=== PATIENT | female | born 1980 | race Caucasian/White ===

== ENCOUNTER 2022-02-16 06:50 | Inpatient (IN) | payer OTHER ==
[~2022-02-16 06:50] MED LIST: Lactated Ringers 1,000 ML IV ONE
[2022-02-16 08:01] LABS: INFLUENZA A NEGATIVE (NEGATIVE); INFLUENZA B NEGATIVE (NEGATIVE); RESPIRATORY SYNCTIAL VIRUS NEGATIVE (Negative); SARS-CoV-2 Xpert Express NEGATIVE (NEGATIVE)
[2022-02-16] MEDS ORDERED: MEFOXIN 2 GM PREMIX** 2 GM/50 ML ML IV ONE (08:27)
[2022-02-16] MEDS ORDERED: Lactated Ringers 1,000 ML IV ONE (08:27)
[2022-02-16] MEDS ORDERED: Lactated Ringers 1,000 ML IV SCH (08:30)
[2022-02-16 08:48] LABS: Hematocrit 42.8 % (35-47); Hemoglobin 14.4 g/dL (12.0-16.0); Mean Cell Volume 94.9 fL (78-100); Mean Corpuscular Hemoglobin 31.9 pg (26-32); Mean Corpuscular Hgb Concent. 33.6 g/dL (32-36); Mean Platelet Volume 10.9 fL (7.5-11.0); Platelet Count 197 x10^3/uL (150-450); Red Blood Count 4.51 x10^6/uL (4.1-5.4); Red Cell Distribution Width 12.1 % (11.5-14.0); White Blood Count 7.7 x10^3/uL (4.0-10.5)
[2022-02-16] MEDS ORDERED: MEFOXIN 2 GM PREMIX** 2 GM/50 ML ML IV SCH (09:00)
[2022-02-16 09:02] LABS: ALBUMIN 4.2 g/dL (3.5-5.0); ALKALINE PHOSPHATASE 58 U/L (38-126); ANION GAP 11.5 MEQ/L (5-15); BLOOD UREA NITROGEN 19 mg/dL (7-17); CHLORIDE 106 mmol/L (98-107); Calcium 8.9 mg/dL (8.4-10.2); Carbon Dioxide 26 mmol/L (22-30); EST GLOMERULAR FILTRATION RATE > 60.0 ML/MIN; Glucose 103 mg/dL (74-106); Potassium 4.4 mmol/L (3.5-5.1); SGOT/AST 20 U/L (14-36); SGPT/ALT 23 U/L (0-35); SODIUM 139 mmol/L (137-145)
[2022-02-16 09:58] LABS: ABO TYPING A; Antibody Screen NEGATIVE (NEGATIVE); RH TYPING POSITIVE
[2022-02-16] MEDS ORDERED: VERSED 5 MG/5 ML ONE (10:33)
[2022-02-16] MEDS ORDERED: OFIRMEV 100 ML IV ONE (10:41)
[2022-02-16] MEDS ORDERED: Pre-Attached Lta Kit TP ONE (10:41)
[2022-02-16] MEDS ORDERED: SUBLIMAZE 100 MCG/2 ML ONE ×2 (10:47→13:06)
[2022-02-16] MEDS ORDERED: Astramorph-Pf 5 MG/10 ML ONE (10:47)
[2022-02-16] MEDS ORDERED: Decadron 4 MG INJ ONE (10:48)
[2022-02-16] MEDS ORDERED: Zofran 4 MG/2 ML VIAL ONE (10:48)
[2022-02-16] MEDS ORDERED: Xylocaine-Mpf 2% 5 Ml Vial ONE (10:48)
[2022-02-16] MEDS ORDERED: DIPRIVAN 200 MG/20 ML IV ONE (10:48)
[2022-02-16] MEDS ORDERED: Zemuron 100 MG/10 ML ONE ×2 (10:48→11:43)
[2022-02-16] MEDS ORDERED: ATROPINE SULFATE 1MG ONE (11:17)
[2022-02-16] MEDS ORDERED: DEXMEDETOMIDINE 80 MCG/20ML-NS IV ONE (11:44)
[2022-02-16] MEDS ORDERED: Sensorcaine 0.25% 10 ML ONE (12:04)
[2022-02-16] MEDS ORDERED: EXPAREL 133 MG/10 ML VIAL IJ ONE (12:21)
[2022-02-16] MEDS ORDERED: Proair Hfa MDI IH ONE (12:35)
[2022-02-16] MEDS ORDERED: BRIDION 200MG/2ML IV ONE (12:50)
[2022-02-16] MEDS ORDERED: Zofran 4 MG/2 ML VIAL IV PRN ×2 (13:59→14:00)
[2022-02-16] MEDS ORDERED: CLARITIN 10 MG PO PRN (14:00)
[2022-02-16] MEDS ORDERED: Sodium Chloride 0.9% 10 ML FLUSH Syringe IJ PRN (14:00)
[2022-02-16] MEDS ORDERED: Narcan 0.4 MG/ML IV PRN (14:00)
[2022-02-16] MEDS ORDERED: BENADRYL 50 MG/ML IV PRN (14:00)
[2022-02-16] MEDS ORDERED: Nubain 10 MG/ML IV PRN (14:00)
[2022-02-16] MEDS ORDERED: DEMEROL 50 MG IV PRN (14:00)
[2022-02-16] MEDS ORDERED: TORAdol 30 mg Injection IV PRN (14:01)
[2022-02-16] MEDS ORDERED: MORPHINE SULFATE 2 MG INJ IV PRN (14:04)
[2022-02-16] MEDS ORDERED: MORPHINE SULFATE 4 MG INJ IV PRN (14:07)
[2022-02-16] MEDS ORDERED: MEDICATION INTERVENTION MC SCH (14:15)
[2022-02-16] MEDS: Mylicon 80MG PO SCH ×2 (14:20→21:02)
[2022-02-16] MEDS: Lactated Ringers 1,000 ML IV SCH ×2 (14:20→22:33)
[2022-02-16] MEDS: Reglan 10 MG/2 ML IV SCH ×2 (14:22→21:02)
[2022-02-16] MEDS: xanAX 0.5 MG PO SCH ×2 (14:23→21:03)
[2022-02-16] MEDS: BUSPAR 5 MG PO SCH ×2 (14:24→21:03)
[2022-02-16 14:55] LABS: Appearance CLEAR (CLEAR); Bilirubin NEGATIVE (NEGATIVE); Glucose NEGATIVE (NEGATIVE); Ketones NEGATIVE (NEGATIVE); Nitrite NEGATIVE (NEGATIVE); Protein,Urine Dip NEGATIVE (Negative); RBC NEGATIVE Ery/ul (0-5); Urobilinogen 0.2 mg/dL (0-1)
[2022-02-16 14:56] LABS: Bacteria NONE SEEN /HPF (NEGATIVE); RBC NONE SEEN /HPF (0-2)
[2022-02-16] MEDS ORDERED: ZOLOFT 50 MG TABLET PO SCH (15:00)
[2022-02-16] MEDS: MEFOXIN 2 GM PREMIX** 2 GM/50 ML ML IV SCH ×2 (16:01→21:01)
[2022-02-16 16:57] LABS: Dipstick done @ ? MAIN LAB
[2022-02-16 18:34] LABS: Hematocrit 44.4 % (35-47); Mean Cell Volume 93.7 fL (78-100); Mean Corpuscular Hemoglobin 31.6 pg (26-32); Mean Corpuscular Hgb Concent. 33.8 g/dL (32-36); Mean Platelet Volume 11.1 fL (7.5-11.0); Platelet Count 227 x10^3/uL (150-450); Red Blood Count 4.74 x10^6/uL (4.1-5.4); Red Cell Distribution Width 11.9 % (11.5-14.0); White Blood Count 15.2 x10^3/uL (4.0-10.5)
[2022-02-16] MEDS: PERCOCET TABLET 5/325MG PO PRN (21:02)
[2022-02-16] MEDS ORDERED: CELECOXIB 50 MG PO SCH (22:00)
[2022-02-16] MEDS ORDERED: Docusate Sodium 100 MG PO SCH (22:00)
[2022-02-17 00:24] VITALS: BP 101/65; PULSE 60
[2022-02-17] MEDS: MEFOXIN 2 GM PREMIX** 2 GM/50 ML ML IV SCH (02:51)
[2022-02-17 05:22] LABS: Hematocrit 37.7 % (35-47); Hemoglobin 12.7 g/dL (12.0-16.0); Mean Corpuscular Hemoglobin 31.7 pg (26-32); Mean Corpuscular Hgb Concent. 33.7 g/dL (32-36); Mean Platelet Volume 11.7 fL (7.5-11.0); Platelet Count 198 x10^3/uL (150-450); Red Blood Count 4.01 x10^6/uL (4.1-5.4); Red Cell Distribution Width 12.3 % (11.5-14.0); White Blood Count 9.5 x10^3/uL (4.0-10.5)
[2022-02-17 05:28] LABS: ALBUMIN 3.5 g/dL (3.5-5.0); ALKALINE PHOSPHATASE 48 U/L (38-126); ANION GAP 7.8 MEQ/L (5-15); BLOOD UREA NITROGEN 14 mg/dL (7-17); CHLORIDE 102 mmol/L (98-107); Calcium 8.5 mg/dL (8.4-10.2); Carbon Dioxide 29 mmol/L (22-30); Creatinine 1 0.77 mg/dL (0.52-1.04); EST GLOMERULAR FILTRATION RATE > 60.0 ML/MIN; Glucose 109 mg/dL (74-106); Potassium 3.7 mmol/L (3.5-5.1); SGOT/AST 23 U/L (14-36); SGPT/ALT 19 U/L (0-35); SODIUM 135 mmol/L (137-145); Total Protein 5.9 g/dL (6.3-8.2)
[2022-02-17] MEDS: Mylicon 80MG PO SCH (06:06)
[2022-02-17] MEDS: Reglan 10 MG/2 ML IV SCH (06:06)
[2022-02-17 07:02] VITALS: O2SAT 96
[2022-02-17] MEDS: PERCOCET TABLET 5/325MG PO PRN (07:18)
--- NOTE | 2022-02-17 07:36 | PCM.NOTE ---
Date and Time: 02/17/22733 Subjective Assessment: pod 1 pt resting in bed able to ambulate and tolerate diet. vss afebrile abd; soft incision with dressing intact without soilage ext; no clubbing cyanosis or edema hgb; 12. 7 a/p sp laparotomy supracervical hysterectomy b/l salpingectomy for chronic pelivic pain dc home today fu office 1 wk Objective Exam Wound Assessment: Skin/Wound Assessment Wound/Incision Assessment Start: 02/16/22 12:14 Text: Status: Active Freq: Q4H Protocol: Document 02/17/22 07:24 SANDRA (Rec: 02/17/22 07:25 SANDRA [id number]) Wound/Incision Assessment Lower Anterior Medial Abdomen Wound Type Incision Wound Photo Photo Taken No OBJECTIVE DATA Vital Signs: Vital Signs - 24 hr Temp Pulse Resp BP Pulse Ox 02/17/22 07:01 96 02/17/22 00:24 96.9 F 60 18 101/65 95 02/17/22 00:00 18 02/16/22 20:00 22 02/16/22 18:55 99 02/16/22 16:30 136/76 02/16/22 16:00 97.7 F 62 19 127/74 95 02/16/22 15:00 122/67 02/16/22 14:22 97 02/16/22 13:45 97.1 F 56 L 22 186/109 99 02/16/22 08:15 98.5 F 60 18 165/99 98 02/16/22 08:06 98.5 F 60 18 165/99 98 02/16/22 07:57 98.5 F 60 18 165/99 98 Pain Assessment - Last Documented Pain Intensity [Lower] 4 Pain Intensity 7 Pain Scale Used 0-10 Pain Scale Intake and Output: Intake & Output 02/14/22 02/15/22 02/16/22 02/17/22 11:59 11:59 11:59 11:59 Intake Total 1020 Output Total 500 Balance 520 Weight 95.7 kg 95.7 kg Lab Results: Lab Results-Last 24 Hours 02/16/22 02/16/22 02/16/22 Range/Units 07:20 07:43 08:39 WBC 7.7 (4.0-10.5) x10^3/uL RBC 4.51 (4.1-5.4) x10^6/uL Hgb 14.4 (12.0-16.0) g/dL Hct 42.8 (35-47) % MCV 94.9 (78-100) fL MCH 31.9 (26-32) pg MCHC 33.6 (32-36) g/dL RDW 12.1 (11.5-14.0) % Plt Count 197 (150-450) x10^3/uL MPV 10.9 (7.5-11.0) fL Sodium (137-145) mmol/L Potassium (3.5-5.1) mmol/L Chloride (98-107) mmol/L Carbon Dioxide (22-30) mmol/L Anion Gap (5-15) MEQ/L BUN (7-17) mg/dL Creatinine (0.52-1.04) mg/dL Estimated GFR ML/MIN Glucose (74-106) mg/dL Calcium (8.4-10.2) mg/dL Total Bilirubin (0.2-1.3) mg/dL AST (14-36) U/L ALT (0-35) U/L Alkaline Phosphatase (38-126) U/L Serum Total Protein (6.3-8.2) g/dL Albumin (3.5-5.0) g/dL Urinalys Dipstick Clnc Urine Color (YELLOW) Urine Appearance (CLEAR) Urine pH (5-6) Ur Specific [place] (1.005-1.025) POC Urine Protein Conf (Negative) Urine Ketones (NEGATIVE) Urine Nitrite (NEGATIVE) Urine Bilirubin (NEGATIVE) Urine Urobilinogen (0-1) mg/dL Urine Leukocytes (NEGATIVE) Urine WBC (Auto) (0-5) /HPF Urine RBC (Auto) (0-2) /HPF U Epithel Cells (Auto) (FEW) /HPF Urine Bacteria (Auto) (NEGATIVE) /HPF Urine RBC (0-5) Yung/ul Urine Glucose (NEGATIVE) mg/dL Urine HCG, Qual NEGATIVE (Negative) Influenza Type A Ag NEGATIVE (NEGATIVE) Influenza Type B Ag NEGATIVE (NEGATIVE) RSV (PCR) NEGATIVE (Negative) SARS-CoV-2 (PCR) NEGATIVE (NEGATIVE) ABO Group Rh Factor Antibody Screen (NEGATIVE) 02/16/22 02/16/22 02/16/22 Range/Units 08:39 08:39 11:16 WBC (4.0-10.5) x10^3/uL RBC (4.1-5.4) x10^6/uL Hgb (12.0-16.0) g/dL Hct (35-47) % MCV (78-100) fL MCH (26-32) pg MCHC (32-36) g/dL RDW (11.5-14.0) % Plt Count (150-450) x10^3/uL MPV (7.5-11.0) fL Sodium 139 (137-145) mmol/L Potassium 4.4 (3.5-5.1) mmol/L Chloride 106 (98-107) mmol/L Carbon Dioxide 26 (22-30) mmol/L Anion Gap 11.5 (5-15) MEQ/L BUN 19 H (7-17) mg/dL Creatinine 0.70 (0.52-1.04) mg/dL Estimated GFR > 60.0 ML/MIN Glucose 103 (74-106) mg/dL Calcium 8.9 (8.4-10.2) mg/dL Total Bilirubin 0.50 (0.2-1.3) mg/dL AST 20 (14-36) U/L ALT 23 (0-35) U/L Alkaline Phosphatase 58 (38-126) U/L Serum Total Protein 7.0 (6.3-8.2) g/dL Albumin 4.2 (3.5-5.0) g/dL Urinalys Dipstick Clnc MAIN LAB Urine Color YELLOW (YELLOW) Urine Appearance CLEAR (CLEAR) Urine pH 7.0 (5-6) Ur Specific [place] 1.020 (1.005-1.025) POC Urine Protein Conf NEGATIVE (Negative) Urine Ketones NEGATIVE (NEGATIVE) Urine Nitrite NEGATIVE (NEGATIVE) Urine Bilirubin NEGATIVE (NEGATIVE) Urine Urobilinogen 0.2 (0-1) mg/dL Urine Leukocytes NEGATIVE (NEGATIVE) Urine WBC (Auto) NONE (0-5) /HPF Urine RBC (Auto) NONE SEEN (0-2) /HPF U Epithel Cells (Auto) NONE (FEW) /HPF Urine Bacteria (Auto) NONE SEEN (NEGATIVE) /HPF Urine RBC NEGATIVE (0-5) Yung/ul Urine Glucose NEGATIVE (NEGATIVE) mg/dL Urine HCG, Qual (Negative) Influenza Type A Ag (NEGATIVE) Influenza Type B Ag (NEGATIVE) RSV (PCR) (Negative) SARS-CoV-2 (PCR) (NEGATIVE) ABO Group A Rh Factor POSITIVE Antibody Screen NEGATIVE (NEGATIVE) 02/16/22 02/17/22 02/17/22 Range/Units 18:15 04:30 04:30 WBC 15.2 H 9.5 (4.0-10.5) x10^3/uL RBC 4.74 4.01 L (4.1-5.4) x10^6/uL Hgb 15.0 12.7 (12.0-16.0) g/dL Hct 44.4 37.7 (35-47) % MCV 93.7 94.0 (78-100) fL MCH 31.6 31.7 (26-32) pg MCHC 33.8 33.7 (32-36) g/dL RDW 11.9 12.3 (11.5-14.0) % Plt Count 227 198 (150-450) x10^3/uL MPV 11.1 H 11.7 H (7.5-11.0) fL Sodium 135 L (137-145) mmol/L Potassium 3.7 (3.5-5.1) mmol/L Chloride 102 (98-107) mmol/L Carbon Dioxide 29 (22-30) mmol/L Anion Gap 7.8 (5-15) MEQ/L BUN 14 (7-17) mg/dL Creatinine 0.77 (0.52-1.04) mg/dL Estimated GFR > 60.0 ML/MIN Glucose 109 H (74-106) mg/dL Calcium 8.5 (8.4-10.2) mg/dL Total Bilirubin 0.90 (0.2-1.3) mg/dL AST 23 (14-36) U/L ALT 19 (0-35) U/L Alkaline Phosphatase 48 (38-126) U/L Serum Total Protein 5.9 L (6.3-8.2) g/dL Albumin 3.5 (3.5-5.0) g/dL Urinalys Dipstick Clnc Urine Color (YELLOW) Urine Appearance (CLEAR) Urine pH (5-6) Ur Specific [place] (1.005-1.025) POC Urine Protein Conf (Negative) Urine Ketones (NEGATIVE) Urine Nitrite (NEGATIVE) Urine Bilirubin (NEGATIVE) Urine Urobilinogen (0-1) mg/dL Urine Leukocytes (NEGATIVE) Urine WBC (Auto) (0-5) /HPF Urine RBC (Auto) (0-2) /HPF U Epithel Cells (Auto) (FEW) /HPF Urine Bacteria (Auto) (NEGATIVE) /HPF Urine RBC (0-5) Yung/ul Urine Glucose (NEGATIVE) mg/dL Urine HCG, Qual (Negative) Influenza Type A Ag (NEGATIVE) Influenza Type B Ag (NEGATIVE) RSV (PCR) (Negative) SARS-CoV-2 (PCR) (NEGATIVE) ABO Group Rh Factor Antibody Screen (NEGATIVE) Multi-Disciplinary Progress Notes: Multi-Disciplinary Progress Notes 02/16/22 18:54 Respiratory Note by Queenie Sprague PT DOING SDC IS Initialized on 02/16/22 18:54 - END OF NOTE Assessment/Plan (1) History of abdominal supracervical subtotal hysterectomy Current Visit: Yes Status: Acute Code(s): Z90.711 - ACQUIRED ABSENCE OF UTERUS WITH REMAINING CERVICAL STUMP (2) Status post bilateral salpingectomy Current Visit: Yes Status: Acute Code(s): Z90.79 - ACQUIRED ABSENCE OF OTHER GENITAL ORGAN(S)
[2022-02-17] MEDS: Lactated Ringers 1,000 ML IV SCH (07:40)
--- NOTE | 2022-02-17 07:41 | PCM.DS ---
Discharge Summary Date of Admission: 02/16/22 06:53 Admitting Physician: LATA NOEL DO Primary Care Provider: OSCAR RAMACHANDRAN Allergies Allergies No Known Drug Allergies Allergy (Verified 02/16/22 07:44) Hospital Summary - Hospital Course Hospital Course: pt was admitted on february 16 for undergoing laparotomy supracervical hysterectomy b/l salpingectomy secondary to chronic pelvic pain and underwent procedure without complication. during postop period did well and had stable hgb level at 12.7. pt able to ambulate and tolerate diet. at this time pt was advised to fu in office in 1 wk for removal of dressing and is able to be discharged today. all questions answered to her satisfaction. - Vitals & Intake/Output Vital Signs: Vital Signs Temperature 96.9 F 02/17/22 00:24 Pulse Rate 60 02/17/22 00:24 Respiratory Rate 18 02/17/22 00:24 Blood Pressure 101/65 02/17/22 00:24 O2 Sat by Pulse Oximetry 96 02/17/22 07:01 Intake & Output: Intake & Output 02/14/22 02/15/22 02/16/22 02/17/22 11:59 11:59 11:59 11:59 Intake Total 1020 Output Total 500 Balance 520 Weight 95.7 kg 95.7 kg - Lab Result Diagrams: 02/17/22 04:30 02/17/22 04:30 Lab Results-Last 24 Hrs: Lab Results-Last 24 Hours 02/16/22 02/16/22 02/16/22 Range/Units 07:20 07:43 08:39 WBC 7.7 (4.0-10.5) x10^3/uL RBC 4.51 (4.1-5.4) x10^6/uL Hgb 14.4 (12.0-16.0) g/dL Hct 42.8 (35-47) % MCV 94.9 (78-100) fL MCH 31.9 (26-32) pg MCHC 33.6 (32-36) g/dL RDW 12.1 (11.5-14.0) % Plt Count 197 (150-450) x10^3/uL MPV 10.9 (7.5-11.0) fL Sodium (137-145) mmol/L Potassium (3.5-5.1) mmol/L Chloride (98-107) mmol/L Carbon Dioxide (22-30) mmol/L Anion Gap (5-15) MEQ/L BUN (7-17) mg/dL Creatinine (0.52-1.04) mg/dL Estimated GFR ML/MIN Glucose (74-106) mg/dL Calcium (8.4-10.2) mg/dL Total Bilirubin (0.2-1.3) mg/dL AST (14-36) U/L ALT (0-35) U/L Alkaline Phosphatase (38-126) U/L Serum Total Protein (6.3-8.2) g/dL Albumin (3.5-5.0) g/dL Urinalys Dipstick Clnc Urine Color (YELLOW) Urine Appearance (CLEAR) Urine pH (5-6) Ur Specific [place] (1.005-1.025) POC Urine Protein Conf (Negative) Urine Ketones (NEGATIVE) Urine Nitrite (NEGATIVE) Urine Bilirubin (NEGATIVE) Urine Urobilinogen (0-1) mg/dL Urine Leukocytes (NEGATIVE) Urine WBC (Auto) (0-5) /HPF Urine RBC (Auto) (0-2) /HPF U Epithel Cells (Auto) (FEW) /HPF Urine Bacteria (Auto) (NEGATIVE) /HPF Urine RBC (0-5) Yung/ul Urine Glucose (NEGATIVE) mg/dL Urine HCG, Qual NEGATIVE (Negative) Influenza Type A Ag NEGATIVE (NEGATIVE) Influenza Type B Ag NEGATIVE (NEGATIVE) RSV (PCR) NEGATIVE (Negative) SARS-CoV-2 (PCR) NEGATIVE (NEGATIVE) ABO Group Rh Factor Antibody Screen (NEGATIVE) 02/16/22 02/16/22 02/16/22 Range/Units 08:39 08:39 11:16 WBC (4.0-10.5) x10^3/uL RBC (4.1-5.4) x10^6/uL Hgb (12.0-16.0) g/dL Hct (35-47) % MCV (78-100) fL MCH (26-32) pg MCHC (32-36) g/dL RDW (11.5-14.0) % Plt Count (150-450) x10^3/uL MPV (7.5-11.0) fL Sodium 139 (137-145) mmol/L Potassium 4.4 (3.5-5.1) mmol/L Chloride 106 (98-107) mmol/L Carbon Dioxide 26 (22-30) mmol/L Anion Gap 11.5 (5-15) MEQ/L BUN 19 H (7-17) mg/dL Creatinine 0.70 (0.52-1.04) mg/dL Estimated GFR > 60.0 ML/MIN Glucose 103 (74-106) mg/dL Calcium 8.9 (8.4-10.2) mg/dL Total Bilirubin 0.50 (0.2-1.3) mg/dL AST 20 (14-36) U/L ALT 23 (0-35) U/L Alkaline Phosphatase 58 (38-126) U/L Serum Total Protein 7.0 (6.3-8.2) g/dL Albumin 4.2 (3.5-5.0) g/dL Urinalys Dipstick Clnc MAIN LAB Urine Color YELLOW (YELLOW) Urine Appearance CLEAR (CLEAR) Urine pH 7.0 (5-6) Ur Specific [place] 1.020 (1.005-1.025) POC Urine Protein Conf NEGATIVE (Negative) Urine Ketones NEGATIVE (NEGATIVE) Urine Nitrite NEGATIVE (NEGATIVE) Urine Bilirubin NEGATIVE (NEGATIVE) Urine Urobilinogen 0.2 (0-1) mg/dL Urine Leukocytes NEGATIVE (NEGATIVE) Urine WBC (Auto) NONE (0-5) /HPF Urine RBC (Auto) NONE SEEN (0-2) /HPF U Epithel Cells (Auto) NONE (FEW) /HPF Urine Bacteria (Auto) NONE SEEN (NEGATIVE) /HPF Urine RBC NEGATIVE (0-5) Yung/ul Urine Glucose NEGATIVE (NEGATIVE) mg/dL Urine HCG, Qual (Negative) Influenza Type A Ag (NEGATIVE) Influenza Type B Ag (NEGATIVE) RSV (PCR) (Negative) SARS-CoV-2 (PCR) (NEGATIVE) ABO Group A Rh Factor POSITIVE Antibody Screen NEGATIVE (NEGATIVE) 02/16/22 02/17/22 02/17/22 Range/Units 18:15 04:30 04:30 WBC 15.2 H 9.5 (4.0-10.5) x10^3/uL RBC 4.74 4.01 L (4.1-5.4) x10^6/uL Hgb 15.0 12.7 (12.0-16.0) g/dL Hct 44.4 37.7 (35-47) % MCV 93.7 94.0 (78-100) fL MCH 31.6 31.7 (26-32) pg MCHC 33.8 33.7 (32-36) g/dL RDW 11.9 12.3 (11.5-14.0) % Plt Count 227 198 (150-450) x10^3/uL MPV 11.1 H 11.7 H (7.5-11.0) fL Sodium 135 L (137-145) mmol/L Potassium 3.7 (3.5-5.1) mmol/L Chloride 102 (98-107) mmol/L Carbon Dioxide 29 (22-30) mmol/L Anion Gap 7.8 (5-15) MEQ/L BUN 14 (7-17) mg/dL Creatinine 0.77 (0.52-1.04) mg/dL Estimated GFR > 60.0 ML/MIN Glucose 109 H (74-106) mg/dL Calcium 8.5 (8.4-10.2) mg/dL Total Bilirubin 0.90 (0.2-1.3) mg/dL AST 23 (14-36) U/L ALT 19 (0-35) U/L Alkaline Phosphatase 48 (38-126) U/L Serum Total Protein 5.9 L (6.3-8.2) g/dL Albumin 3.5 (3.5-5.0) g/dL Urinalys Dipstick Clnc Urine Color (YELLOW) Urine Appearance (CLEAR) Urine pH (5-6) Ur Specific [place] (1.005-1.025) POC Urine Protein Conf (Negative) Urine Ketones (NEGATIVE) Urine Nitrite (NEGATIVE) Urine Bilirubin (NEGATIVE) Urine Urobilinogen (0-1) mg/dL Urine Leukocytes (NEGATIVE) Urine WBC (Auto) (0-5) /HPF Urine RBC (Auto) (0-2) /HPF U Epithel Cells (Auto) (FEW) /HPF Urine Bacteria (Auto) (NEGATIVE) /HPF Urine RBC (0-5) Yung/ul Urine Glucose (NEGATIVE) mg/dL Urine HCG, Qual (Negative) Influenza Type A Ag (NEGATIVE) Influenza Type B Ag (NEGATIVE) RSV (PCR) (Negative) SARS-CoV-2 (PCR) (NEGATIVE) ABO Group Rh Factor Antibody Screen (NEGATIVE) - Procedures and Test Procedures and Tests throughout Hospitalization: Therapy Orders & Screens 02/16/22 13:55 Incentive Spirometry TID Comment: Diagnosis: elective hysterectomy Oxygen Nasal Cannula 3 lpm Comment: Diagnosis: elective hysterectomy Discharge Exam Wound Assessment: Skin/Wound Assessment Wound/Incision Assessment Start: 02/16/22 12:14 Text: Status: Active Freq: Q4H Protocol: Document 02/17/22 07:24 SANDRA (Rec: 02/17/22 07:25 SANDRA [id number]) Wound/Incision Assessment Lower Anterior Medial Abdomen Wound Type Incision Wound Photo Photo Taken No Final Diagnosis/Problem List - Final Discharge Diagnosis/Problem (1) History of abdominal supracervical subtotal hysterectomy Current Visit: Yes Status: Acute Code(s): Z90.711 - ACQUIRED ABSENCE OF UTERUS WITH REMAINING CERVICAL STUMP (2) Status post bilateral salpingectomy Current Visit: Yes Status: Acute Code(s): Z90.79 - ACQUIRED ABSENCE OF OTHER GENITAL ORGAN(S) - Discharge Disposition: Home, Self-Care Condition: Stable Prescriptions: New Hydrocodone/Acetaminophen [Hydrocodone-Acetamin 5-325 mg] 1 tab PO Q6HPRN PRN #30 tablet MDD 4 PRN Reason: Pain Continue Alprazolam [Xanax] 0.5 mg PO BID Sertraline HCl 50 mg [Zoloft 50 mg Tablet] 150 mg PO DAILY Buspirone HCl 5 mg [Buspar 5 mg] 10 mg PO BID Celecoxib [Celebrex] 1 tab PO BID Tizanidine HCl 4 mg [Zanaflex 4 MG] 8 mg PO HS Follow up with: OSCAR RAMACHANDRAN MD [Primary Care Provider] - LATA NOEL DO [ACTIVE STAFF] - 7 Days (no heavy lifting keep incision clean and dry will remove dressing in [address] after 7 days)
[2022-02-17] MEDS ORDERED: ENOXAPARIN SODIUM SQ SCH (08:00)
--- NOTE | 2022-02-17 08:22 | OP ---
SURGERY DATE/TIME: 02/16/2022 1041 PREOPERATIVE DIAGNOSIS: Chronic pelvic pain. POSTOPERATIVE DIAGNOSIS: Chronic pelvic pain. PROCEDURES: 1) Laparoscopic supracervical hysterectomy. 2) Bilateral salpingectomy. SURGEON: Adolfo Edward D.O. TRUCK LOADER: Jane Vegas, biomedical repair technician. ANESTHESIA: General and spinal. ESTIMATED BLOOD LOSS: 50 cc. COMPLICATIONS: None. INDICATIONS: The risks, benefits, indications and alternatives of the procedure were reviewed with the patient prior to the procedure. The patient understood the risk of infection, bleeding, bowel injury, bladder injury, ureteral injury, uterine perforation, pelvic infection and thromboembolic disorder associated with this surgery and desires to have this surgery as a possible means to alleviate her current medical condition. DESCRIPTION OF PROCEDURE AND FINDINGS: At this point the patient is taken to the operating room placed in the supine position, given general anesthesia, prepared and draped in the usual sterile fashion. A Pfannenstiel incision was made approximately 2 cm above the symphysis pubis and extended sharply through the rectus fascia. The fascia was then incised bilaterally with curved Smith scissors and the muscles of the anterior abdominal wall were in the midline by sharp and blunt dissection. The peritoneum was then grasped between two pickups elevated and entered sharply with Metzenbaum scissors. The pelvis is then examined and noted to have approximately a 9 to 10 week size uterus. An O'Octaviano-O'Devlin retractor was placed into the incision and the bowel packed away with moist laparotomy sponges. From this point, tenaculum is used to elevate the uterus at this point. From this point the LigaSure was then used and the LigaSure was placed over the left mesosalpinx where it is clamped, coagulated, cut towards the cornual region and as well the utero-ovarian ligament was clamped, coagulated and cut and taken towards the round ligament where it to was clamped, coagulated and cut towards the uterine vasculature. The uterine vasculature was skeletonized with Metzenbaum scissors and a bladder flap developed on its side. The same procedure was performed on the right side where the right mesosalpinx was used to cut underneath the right fallopian tube where it was clamped, coagulated and cut taken down towards the cornual region and on to the utero-ovarian ligament where it to was clamped, coagulated, cut taken down towards the round ligament and it too was clamped, coagulated and cut towards uterine vasculature where it was skeletonized and a bladder flap developed on its side. From this point, the bladder was gently dissected off the lower uterine segment and the cervix with a sponge stick. From this point the uterine arteries as mentioned was skeletonized and again were clamped with Luisa clamp, transected and suture ligated with 0 Vicryl suture. Again, hemostasis was assured. From this point the uterus was then amputated from the cervical stump using the cautery and was done so without complication. After removal of the uterus and bilateral tubes, the cervical stump was closed with a continuous stitch of 0 Vicryl suture and hemostasis was obtained. The bilateral ovaries appeared to be within normal limits and were not removed during the procedure. From this point, the pelvis was then irrigated copiously with warm normal saline. All operative sponges were then removed from the abdomen. The fascia was closed with a running 0 Vicryl and hemostasis assured. The skin was closed with absorbable juan miguel called INSORB. Sponge, lap, needle and instruments counts were correct x2. The patient was then taken to the recovery room in stable condition.
[2022-02-17] MEDS ORDERED: HOLD NARCOTIC ANALGESICS AND SEDATIVES X24 HR MC SCH (10:00)
== END 2022-02-17 09:00 | disposition home or self-care (01) | DRG 983 ==
LOC: EDSTATUS 06:50 → MED SURG 06:53 → EDSTATUS 08:47
PROVIDERS: ADMIT Obstetrics & Gynecology; ATTEND Obstetrics & Gynecology
PROC: 0UT94ZL Resection of Uterus, Supracervical, Percutaneous Endoscopic Approach (ICD-10-PCS; principal; 2022-02-16)
PROC: 0UT74ZZ Resection of Bilateral Fallopian Tubes, Percutaneous Endoscopic Approach (ICD-10-PCS; 2022-02-16)
DX: R10.2 Pelvic and perineal pain (principal); N99.85 Post endometrial ablation syndrome
CPT/HCPCS: 0241U; 36415; 58542; 64488; 76937; 76942; 80053; 81001; 81025; 85027; 86850; 86900; 86901; 87086; 94762; 62322; J0461; J0694; J1100; J2250; J2274; J2405; J2704; J3010; A9270-GY